=== PATIENT | male | born 1960 | race American Indian/Alaskan Native ===

== ENCOUNTER 2019-02-26 22:52 | Emergency (ER) | payer OTHER ==
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
[2019-02-26 23:19] LABS: Basophils # (Auto) 0.1 K/mm3 (0.0-0.1); Basophils % (Auto) 0.7 % (0.0-1.8); Eosinophils # (Auto) 0.1 K/mm3 (0.0-0.4); Eosinophils % (Auto) 0.8 % (0.0-4.3); Hematocrit 42.2 % (35.5-45.6); Hemoglobin 14.3 gm/dl (11.8-15.2); Lymphocytes # (Auto) 2.2 K/mm3 (1.2-5.4); Lymphocytes % (Auto) 16.4 % (13.4-35.0); Mean Corpuscular HGB Conc 34 % (32-34); Mean Corpuscular Volume 94 fl (84-94); Monocytes # (Auto) 1.2 K/mm3 (0.0-0.8); Monocytes % (Auto) 9.1 % (0.0-7.3); Platelet Count 206 K/mm3 (140-440); Red Blood Count 4.49 M/mm3 (3.65-5.03)
[2019-02-26 23:43] LABS: Albumin 4.5 g/dL (3.9-5); Calcium 9.3 mg/dL (8.4-10.2)
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
--- NOTE | 2019-02-26 23:48 | XRay Report ---
PROCEDURE: RIGHT FOREARM TECHNIQUE: RIGHT forearm radiographs, AP and lateral views. CPT 29059 HISTORY: Trauma COMPARISONS: None . FINDINGS: Fracture (s) and/or Dislocation(s): None . Joint space(s): Normal . Soft tissues: Normal . Bone mineralization: Normal . Foreign bodies: None . IMPRESSION: Normal Examination . This document is electronically signed by Sulaiman Lance MD., Feb 26 2019 11:46:59 PM ET
--- NOTE | 2019-02-26 23:51 | XRay Report ---
PROCEDURE: RIGHT HUMERUS TECHNIQUE: RIGHT humerus radiographs, AP and lateral views. CPT 63383 HISTORY: Trauma COMPARISONS: None . FINDINGS: Fracture (s) and/or Dislocation(s): None . Joint space(s): Normal . Soft tissues: Normal . Bone mineralization: Normal . Foreign bodies: None . IMPRESSION: Normal Examination . This document is electronically signed by Sulaiman Lance MD., Feb 26 2019 11:49:20 PM ET
--- NOTE | 2019-02-26 23:56 | XRay Report ---
PROCEDURE: RIGHT WRIST, 3 VIEWS TECHNIQUE: RIGHT wrist radiographs, including AP, lateral, and oblique views. CPT 41504 HISTORY: Trauma COMPARISONS: None . FINDINGS: Fracture (s) and/or Dislocation(s): There is a nondisplaced fracture of the radial styloid process v isible on 2 views. The ulna is intact. The carpal bones are intact.. There is a 4 mm corticated bony density dorsal to the carpal bones which could be from an old fracture. Alignment: Normal . Joint space(s): Normal . Soft tissues: There is dorsal soft tissue swelling of the wrist. . Bone mineralization: Normal . Foreign bodies: None . IMPRESSION: Nondisplaced fracture of the distal radius. . This document is electronically signed by Sulaiman Lance MD., Feb 26 2019 11:54:20 PM ET
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
[2019-02-27] MEDS ORDERED: BOOSTRIX IM ONE (00:08)
[2019-02-27 00:16] VITALS: BP 107/74
== END 2019-02-27 01:05 | disposition home or self-care (01) ==
LOC: ED 22:52
DX: S16.1XXA Strain of muscle, fascia and tendon at neck level, initial encounter (principal); S52.611A Displaced fracture of right ulna styloid process, initial encounter for closed fracture; S01.112A Laceration without foreign body of left eyelid and periocular area, initial encounter; S52.501A Unspecified fracture of the lower end of right radius, initial encounter for closed fracture; F10.129 Alcohol abuse with intoxication, unspecified; V89.2XXA Person injured in unspecified motor-vehicle accident, traffic, initial encounter; Y93.89 Activity, other specified; Y92.89 Other specified places as the place of occurrence of the external cause; Y99.8 Other external cause status
CPT/HCPCS: 29125; 36415; 70450; 72125; 73030; 73060; 73090; 73110; 80053; 85025; 99291; G0480; 80320